=== PATIENT | male | born 1990 | race Caucasian/White ===

== ENCOUNTER 2021-09-09 15:49 | Emergency (ER) | payer OTHER, SELFPAY ==
[2021-09-09 16:45] VITALS: BP 146/103; PULSE 59; RESP 18; TEMP 36.5; O2SAT 96; BMI 42.0
--- NOTE | 2021-09-09 18:02 | USR_ITS ---
PROCEDURE INFORMATION: Exam: US Duplex Left Lower Extremity Veins, Limited Exam date and time: 09/09/2021 8:13 PM Age: 31 years old Clinical indication: Pain; Swelling (edema) of limb; Lower extremity, left; Leg, upper and leg, lower; Additional info: Leg pain TECHNIQUE: Imaging protocol: Real-time Duplex ultrasound of the Left Lower Extremity with 2-D latif scale, color Doppler flow and spectral waveform analysis with image documentation. Limited exam focused on the left lower extremity veins. COMPARISON: No relevant prior studies available. FINDINGS: Left deep veins: Unremarkable. The common femoral, femoral, proximal profunda femoral and popliteal veins are patent without thrombus. Normal Doppler waveforms. Normal compressibility and/or augmentation response. Left superficial veins: Unremarkable. Saphenofemoral junction is patent without thrombus. Soft tissues: Unremarkable. US/CV venous duplex [facility] [id number] IMPRESSION: No evidence of deep vein thrombosis.
--- NOTE | 2021-09-09 20:06 | ED_ITS ---
HPI - Extremity Problem General: Chief complaint: Extremity Injury, Lower Stated complaint: poss bloodclot Time Seen by Provider: 09/09/21 20:06 History of Present Illness: 31-year-old male patient comes in today with complaints of swelling and discomfort to the left lower extremity. Patient does have a history of intervertebral disc disease affecting his low back and bilateral lower extremities. Patient was referred to the ER from his primary care office for concerns of possible blood clot. Patient appears nontoxic. Patient appears no acute distress. MD Complaint: extremity swelling Onset (ago): day(s) Associated symptoms: Deny chest pain or fever(s) Review of Systems General: Reports: 10 or more systems reviewed and unremarkable except in HPI and below Const: Denies: fever(s) Card: Denies: chest pain Resp: Denies: dyspnea Musc: Reports: extremity swelling (Left lower leg) Physical Exam Const: COMMON NORMALS: alert Neck/C-Spine: COMMON NORMALS: full ROM Resp: COMMON NORMALS: normal respiratory effort Extremity: LEFT LOWER EXTREMITY: Yes lower leg (No significant swelling or redness) Left lower leg: Yes inspection, Yes palpation and Yes neurovascular exam Neuro: SENSORIUM/ORIENTATION: Yes alert Course Vital Signs: Vital signs: Vital Signs Temperature 97.7 F 09/09/21 16:45 Pulse Rate 59 L 09/09/21 16:45 Respiratory Rate 18 09/09/21 16:45 Blood Pressure 146/103 09/09/21 16:45 Pulse Oximetry 96 09/09/21 16:45 MDM - Extremity (Nontraumatic) Medical Decision Making Patient comes in today with complaints of left lower extremity pain and swelling. On exam there is no significant redness or swelling to the left lower extremity. Pulses are intact. Patient does report pain to palpation. Differential diagnosis includes but not limited to neuropathy, PVD, DVT. Review of the ultrasound indicated no sign of DVT. Reviewed exam with patient with recommendations for follow-up or return to the ER. Patient reported understanding. Discharge Plan Discharge Patient Disposition: Home Clinical Impression: Mild peripheral edema Condition: Stable Discharge Orders: Discharge ED (Routine); Ordered 09/09/21 Ordered By: Robert Jaime Discharge Diet: Usual diet Discharge Activity: Increase activity as tolerated Patient Instructions: Leg Edema (ED) Activity Restrictions/Additional Instructions: Try to elevate leg is much as possible. Monitor for increasing redness and pain. Follow-up with primary care for further instruction. Return to ER for new concerns. If the final results from your ultrasound are different than what we explained we will contact you. Coding Level of Care Code ED Seed Cleaning Machine Operator for Emily Fwd Exam Expanded Problem Focused
[2021-09-09 21:39] VITALS: BP 154/92; PULSE 95; RESP 18; TEMP 36.8; O2SAT 95
== END 2021-09-09 21:40 | disposition home or self-care (01) ==
PROVIDERS: Emergency Provider Nurse Practitioner Family
DX: R60.0 Localized edema (principal)
CPT/HCPCS: 93971; 99282

== ENCOUNTER → 2021-09-18 08:26 | Outpatient (BNVA) | payer OTHER, SELFPAY | PROVIDERS: PCP Family Medicine; Visit Provider Internal Medicine Critical Care Medicine | DX: D86.9 Sarcoidosis, unspecified (principal); G47.33 Obstructive sleep apnea (adult) (pediatric); M54.9 Dorsalgia, unspecified; G89.29 Other chronic pain; F17.210 Nicotine dependence, cigarettes, uncomplicated | CPT/HCPCS: 36415; 71046; 80053; 82164; 82306; 82652; 85025; 99204 ==

== ENCOUNTER → 2021-09-21 12:30 | Outpatient (BNVA) | payer OTHER, SELFPAY | PROVIDERS: PCP Family Medicine; Visit Provider Internal Medicine Critical Care Medicine | DX: D86.9 Sarcoidosis, unspecified (principal); G47.33 Obstructive sleep apnea (adult) (pediatric); M54.9 Dorsalgia, unspecified; G89.29 Other chronic pain; F17.210 Nicotine dependence, cigarettes, uncomplicated | CPT/HCPCS: 82340 ==

== ENCOUNTER → 2021-09-25 14:53 | Outpatient (BNVA) | payer OTHER, SELFPAY | PROVIDERS: PCP Family Medicine; Referring Provider Family Medicine; Visit Provider Surgery | DX: Z86.010 Personal history of colon polyps (principal); F17.210 Nicotine dependence, cigarettes, uncomplicated | CPT/HCPCS: 99203 ==

== ENCOUNTER 2021-10-16 07:27 | Outpatient (RCR) | payer OTHER, SELFPAY | END 2021-11-12 23:59 | disposition home or self-care (01) | LOC: SPT 07:27 | PROVIDERS: PCP Family Medicine; Referring Provider Family Medicine; Visit Provider Family Medicine | DX: M54.50 Low back pain, unspecified (principal) | CPT/HCPCS: 97032; 97110; 97161 ==

== ENCOUNTER 2021-11-13 06:00 | Outpatient (RCR) | payer OTHER, SELFPAY | END 2021-12-12 23:59 | disposition home or self-care (01) | LOC: SPT 06:00 | PROVIDERS: PCP Family Medicine; Referring Provider Family Medicine; Visit Provider Family Medicine | DX: M54.50 Low back pain, unspecified (principal) | CPT/HCPCS: 97032; 97110 ==

== ENCOUNTER → 2021-11-25 13:50 | Outpatient (BNVA) | payer OTHER, SELFPAY | PROVIDERS: PCP Family Medicine; Referring Provider Family Medicine; Visit Provider Specialist | DX: S43.102S Unspecified dislocation of left acromioclavicular joint, sequela (principal); X58.XXXS Exposure to other specified factors, sequela; S46.912S Strain of unspecified muscle, fascia and tendon at shoulder and upper arm level, left arm, sequela; M25.512 Pain in left shoulder | CPT/HCPCS: 73030; 99204 ==

== ENCOUNTER → 2021-12-18 07:54 | Outpatient (BNVA) | payer OTHER, SELFPAY | PROVIDERS: PCP Family Medicine; Referring Provider Specialist; Visit Provider Specialist | DX: R20.0 Anesthesia of skin (principal); R20.2 Paresthesia of skin | CPT/HCPCS: 95908; 95909 ==

== ENCOUNTER 2022-01-23 08:42 | Outpatient (CLI) | payer OTHER, SELFPAY ==
--- NOTE | 2022-01-23 08:45 | MR_ITS ---
WS: [id number] MRI LEFT SHOULDER NONCONTRAST TECHNIQUE: Sagittal T2, coronal T1, T2 and proton density imaging. Axial gradient PDE imaging. CLINICAL INFORMATION: pain COMPARISON: None. FINDINGS: Prior postoperative changes AC joint with resection of the distal clavicle. Tiny amount of edema/flui d. Subacromial space is preserved. Normal supraspinatus. Normal infraspinatus. Normal teres minor. Lara bscapularis is normal. No acute appearing rotator cuff tears. Normal biceps tendon in the bicipital groove. Normal biceps labral anchor. Glenoid labrum appears tomasz ssly normal. Normal bone marrow signal in the humerus and glenoid. Normal intra-articular biceps tend on. MR/MR shoulder LT wo con* [id number] IMPRESSION: 1. Prior postoperative changes AC joint with resection distal clavicle. Tiny a mount of edema at the distal clavicle. 2. Preservation of the subacromial space. Normal rotator cuff. No acute rotato r cuff tears. 3. Normal biceps tendon in the bicipital groove. Normal biceps labral anchor. 4. No other suspicious findings.
== END 2022-01-23 08:43 | disposition home or self-care (01) ==
PROVIDERS: PCP Family Medicine; Visit Provider Specialist
DX: M25.512 Pain in left shoulder (principal); R60.0 Localized edema
CPT/HCPCS: 73221

== ENCOUNTER 2022-02-21 12:38 | Emergency (ER) | payer OTHER, SELFPAY ==
[2022-02-21 12:40] VITALS: BP 141/100; PULSE 64; RESP 16; TEMP 36.7; O2SAT 97; BMI 39.5
--- NOTE | 2022-02-21 13:15 | W.ED.BACK ---
HPI - Back Pain/Injury General: Chief Complaint: Back Pain/Injury Stated Complaint: lower back pain Time Seen by Provider: 02/21/22 12:57 Source: patient Mode of arrival: ambulatory Limitations: no limitations History of Present Illness: 31-year-old male with a history of chronic back pain presents to the ER today for worsening low back pain x4 days. Patient reports he was working in his garage on Thursday and noticed that evening he had some increased pain. He denies doing any heavy lifting however does admit to lifting some and twisting some. Patient reports throughout the week the pain has continued to worsen. Patient reports he lives with pain every day and takes hydrocodone, tizanidine, gabapentin, and duloxetine. Patient reports this pain seems slightly different and worse. He reports he still has radiating pain down his legs however that burning/radiating pain is normal for him. He denies any loss of bowel or bladder control. Denies any new neurological deficits. Patient reports he sees a pain management doctor at [place]. Review of Systems General: Reports: 10 or more systems reviewed and unremarkable except in HPI and below PFSH ED PFSH: Medical History Chronic back pain Chronic fatigue Depression Obstructive sleep apnea Sarcoidosis Separation of left acromioclavicular joint, type 5 Social History Smoking and tobacco status: current every day smoker (5 cigs/ day, smokes 1 gram marijuana/ day) Alcohol intake: never History of recent travel: No Physical Exam Const: COMMON NORMALS: patient oriented x3, no limitations, healthy appearing, alert and well nourished Neck/C-Spine: COMMON NORMALS: full ROM and no lymphadenopathy Resp: COMMON NORMALS: normal respiratory effort EFFORT & INSPECTION: Yes able to speak in complete sentences Cardio: COMMON NORMALS: regular rate and regular rhythm RATE: regular rate RHYTHM: regular rhythm GI: OTHER: obese Back/Pelvis: COMMON NORMALS: thoracic and lumbar spine normal to inspection and no thoracic nor lumbar tenderness (Right paraspinal muscle tenderness); negative for thoraco-lumbar ROM normal (Decreased range of motion secondary to pain.) Extremity: COMMON NORMALS: normal to inspection and full ROM Neuro: COMMON NORMALS: patient oriented x3 SENSORIUM/ORIENTATION: Yes alert Psych: COMMON NORMALS: mental status grossly normal, Normal thought process present and cooperative THOUGHT PROCESS: Normal thought process present Skin: COMMON NORMALS: no rashes or lesions noted and no wounds GENERAL SKIN EXAM: no rashes or lesions noted Course ED course: 31-year-old male presents to the ER today for an acute exacerbation of chronic low back pain. Patient reports a longstanding history of low back problems. Patient reports has had multiple surgeries before. Patient reports on Thursday he was cleaning his garage out and by that evening he noticed some increased back pain. Patient denies any heavy lifting but does admit to lifting 10 to 15 pounds and doing some twisting. Patient reports throughout the week the pain has continued to worsen. He reports it feels like a slightly different pain than normal. He denies any neurological deficits. Denies any loss of bowel or bladder control. Patient reports he still has the pain radiating down his leg however that is not a new thing for him. Patient reports he is taking all his medications at home with minimal relief. He has not been able to sleep the last couple of days. Given patient has no neurological deficits at this time and this is not a new pain, I do not feel imaging is necessary at this time. Vital Signs: Vital signs: Vital Signs Temperature 98.1 F 02/21/22 12:40 Pulse Rate 64 02/21/22 12:40 Respiratory Rate 16 02/21/22 12:40 Blood Pressure 141/100 02/21/22 12:40 Pulse Oximetry 97 02/21/22 12:40 Oxygen Delivery Me thod 02/21/22 12:40 MDM - Back Pain/Injury Medical Decision Making 31-year-old male presents to the ER today for an acute exacerbation of chronic low back pain. Patient reports a longstanding history of low back problems. Patient reports has had multiple surgeries before. Patient reports on Thursday he was cleaning his garage out and by that evening he noticed some increased back pain. Patient denies any heavy lifting but does admit to lifting 10 to 15 pounds and doing some twisting. Patient reports throughout the week the pain has continued to worsen. He reports it feels like a slightly different pain than normal. He denies any neurological deficits. Denies any loss of bowel or bladder control. Patient reports he still has the pain radiating down his leg however that is not a new thing for him. Patient reports he is taking all his medications at home with minimal relief. He has not been able to sleep the last couple of days. Given patient has no neurological deficits at this time and this is not a new pain, I do not feel imaging is necessary at this time. Patient is likely having a flareup of chronic low back pain due to some inflammation. Recommended patient increase his meloxicam from 7.5 to 15 mg daily. We will do a Medrol Dosepak to help with inflammation. Patient should continue all other home medications as previously prescribed. Contact pain management doctor today or Thursday for follow-up. Return to the ER with any new or worsening symptoms. Patient verbalized understanding and was in agreement with the treatment plan. Critical Care Time Critical Care Time: Critical Care Time: No Discharge Plan Discharge Patient Disposition: Home Clinical Impression: Acute exacerbation of chronic low back pain Condition: Stable Prescriptions: New Medrol (Artem) 4 mg tablets,dose pack See Rx Instructions PO .COMPLEX Qty: 21 0RF Rx Instructions: orally per package directions No Action buspirone 30 mg tablet 20 mg PO BID cetirizine [Allergy Relief (cetirizine)] 10 mg tablet 10 mg PO DAILY PRN cholecalciferol (vitamin D3) 50 mcg (2,000 unit) capsule 50 mcg PO DAILY duloxetine 30 mg capsule,delayed release(DR/EC) 30 mg PO TID fluticasone propionate [Allergy Relief (fluticasone)] 50 mcg/actuation spray,suspension 2 spray intranasal DAILY Rx Instructions: administer into each nostril gabapentin 600 mg tablet 600 mg PO TID naloxone 4 mg/actuation spray,non-aerosol 4 mg intranasal ONCE PRN Rx Instructions: spray 1 dose into ONE nostril; alternate nostrils w each dose until help arrives tizanidine 4 mg capsule 4 mg PO TID PRN meloxicam 7.5 mg tablet 7.5 mg PO DAILY hydrocodone-acetaminophen 7.5-325 mg tablet 1 tab PO Q6H PRN Label Comments: Decreased to 5mg/325mg multivitamin Tablet 1 tab PO DAILY Discharge Orders: Discharge ED (Routine); Ordered 02/21/22 Ordered By: Anastacia Bowser Referrals: Zoya Daly MD [Primary Care Provider] - Discharge Diet: Usual diet Discharge Activity: Increase activity as tolerated Patient Instructions: Opioid Safety Activity Restrictions/Additional Instructions: Take Medrol Dosepak as prescribed. Increase meloxicam from 7.5 to 15 mg daily. Warm heat alternating with ice. Contact PCP/pain management doctor today or Thursday for follow-up next week. Return to the ER with any new or worsening symptoms. Coding Level of Care Code ED Developer [employer] for Emily Monsalve
== END 2022-02-21 13:58 | disposition home or self-care (01) ==
PROVIDERS: Emergency Provider Physician Assistant; PCP Family Medicine
DX: G89.29 Other chronic pain (principal); M54.50 Low back pain, unspecified; F17.210 Nicotine dependence, cigarettes, uncomplicated
CPT/HCPCS: 99283

== ENCOUNTER 2022-02-27 06:29 | Day surgery (SDC) | payer OTHER, SELFPAY ==
[2022-02-25 09:34] VITALS: BMI 39.8
[2022-02-27 06:46] VITALS: BP 140/86; PULSE 64; RESP 16; TEMP 36.4; O2SAT 96
[2022-02-27] MEDS: sodium chloride 0.9% 1,000 ML 30 ML IV (06:53)
--- NOTE | 2022-02-27 07:19 | P.HP_ITS ---
Same Day Surgery H&P Indication for Procedure/HPI DATE OF PROCEDURE: February 27, 2022 CHIEF COMPLAINT/INDICATIONFOR SURGICAL PROCEDURE: History of colon polyps PREOP DIAGNOSIS: History of colon polyps PLANNED PROCEDURE: Operation Date: 02/27/22 08:00 Proposed Procedures p Colonoscopy 69840/z86.010(Not Applicable) - Samuel Kathleen MD 09/25/2021 This is a pleasant 31 years old gentleman reports that he had history of colon polyps removed 5 years ago as he did have bleeding per rectum.? He denies history of colon cancer except for his grand father whom he had colon cancer and he reports that his mom had history of colon polyps being precancerous.? Patient comes today to discuss surveillance colonoscopy. 02/27/2022 Patient comes today for surveillance colonoscopy ROS All systems have been reviewed negative except as for the above or per problem list. Medications/Allergies* Home Medications Medication Instructions Recorded Confirmed Type buspirone 30 mg tablet 30 mg PO BID 09/18/21 02/27/22 History cetirizine 10 mg tablet (Allergy 10 mg PO DAILY PRN Allergy Symptoms 09/18/21 02/27/22 History Relief (cetirizine)) duloxetine 30 mg capsule,delayed 30 mg PO TID 09/18/21 02/27/22 History release fluticasone propionate 50 2 spray intranasal DAILY PRN 09/18/21 02/27/22 History mcg/actuation nasal Allergy Symptoms spray,suspension (Allergy Relief (fluticasone)) gabapentin 600 mg tablet 600 mg PO TID 09/18/21 02/27/22 History meloxicam 7.5 mg tablet 7.5 mg PO DAILY 09/18/21 02/27/22 History naloxone 4 mg/actuation nasal spray 4 mg intranasal ONCE PRN Opioid 09/18/21 02/27/22 History Overdose tizanidine 4 mg capsule 4 mg PO TID PRN Muscle Spasm 09/18/21 02/27/22 History multivitamin 1 tab PO DAILY 12/18/21 02/27/22 History hydrocodone 10 mg-acetaminophen 1 tab PO Q6H PRN Pain 02/25/22 02/27/22 History 325 mg tablet Allergies/Adverse Reactions Allergy/AdvReac Type Severity Reaction Status Date / Time latex Allergy Severe ALGY-Rash Verified 02/27/22 07:19 Current Medications: Generic Name Dose Route Start Last Admin Trade Name Francisco PRN Reason Stop Dose Admin Sodium Chloride 1,000 mls @ 30 mls/hr 02/27/22 06:45 02/27/22 06:53 Sodium Chloride 0.9% IV 30 mls/hr .Q24H KEN Administration Pertinent History/Comorbid Conditions* Medical History (Updated 02/21/22 @ 13:35 by Anastacia Bowser PA-C) Chronic back pain Chronic fatigue Depression Obstructive sleep apnea Sarcoidosis Separation of left acromioclavicular joint, type 5 Social History Smoking and tobacco status: current every day smoker (5 cigs/ day, smokes 1 gram marijuana/ day) Alcohol intake: never History of recent travel: No Pertinent Exam Findings alert, oriented x 3, regular rate & rhythm and procedure specific exam findings (Abdominal examination nontender nondistended soft) Recommendations Surgery/Procedure today (Colonoscopy with possible biopsy) Coding Level of Care Code Acute Analytical Research Chemist for Emily Monsalve
--- NOTE | 2022-02-27 07:27 | P.ANESASSM_ITS ---
Pre-Anesthetic Assessment Height/Weight: Height 1.88 m Weight 140.614 kg Temp Pulse Resp BP Pulse Ox O2 Del Method 97.6 F 64 16 140/86 96 02/27/22 06:46 02/27/22 06:46 02/27/22 06:46 02/27/22 06:46 02/27/22 06:46 02/27/22 06:46 Preop Diagnosis: History of colon polyps Operation Date: 02/27/22 08:00 Proposed Procedures p Colonoscopy 41313/z86.010(Not Applicable) - Samuel Kathleen MD Last intake: Intake Last Liquid Date 02/26/22 Last Liquid Time 00:00 Last Solid Date 02/25/22 Last Solid Time 22:00 Social Alcohol and Tobacco last cig last night. 5-10 cigs a day pack(s) per day Exam alert, oriented x 3, clear to auscultation bilaterally and regular rate & rhythm Airway Submandibular: within normal limits Cervical ROM: within normal limits Mallampati: Class II History/ROS No significant history except as noted Pulmonary Sleep Apnea sarcoidosis with lung mass CV/HEM None reported None reported Hepatic None reported GI Gastroesophageal Reflux Disease Metabolic Morbid Ob[place] [facility] Lower Back Pain Neuropsych Anxiety and Depression Anesthetic Plan ASA status: 3 Anesthesia: Anesthesia Evaluation and MAC Risk of > 500 ml blood loss (7ml/kg in children): Yes, adequate IV access and fluids planned Medications/Allergies Home Medications Medication Instructions Recorded Confirmed Last Taken Type buspirone 30 mg tablet 30 mg PO BID 09/18/21 02/27/22 02/26/22 History cetirizine 10 mg tablet (Allergy 10 mg PO DAILY PRN Allergy Symptoms 09/18/21 02/27/22 02/25/22 History Relief (cetirizine)) duloxetine 30 mg capsule,delayed 30 mg PO TID 09/18/21 02/27/22 02/26/22 History release fluticasone propionate 50 2 spray intranasal DAILY PRN 09/18/21 02/27/22 Unknown History mcg/actuation nasal Allergy Symptoms spray,suspension (Allergy Relief (fluticasone)) gabapentin 600 mg tablet 600 mg PO TID 09/18/21 02/27/22 02/26/22 History meloxicam 7.5 mg tablet 7.5 mg PO DAILY 09/18/21 02/27/22 02/26/22 History naloxone 4 mg/actuation nasal spray 4 mg intranasal ONCE PRN Opioid 09/18/21 02/27/22 Unknown History Overdose tizanidine 4 mg capsule 4 mg PO TID PRN Muscle Spasm 09/18/21 02/27/22 02/26/22 History multivitamin 1 tab PO DAILY 12/18/21 02/27/22 02/25/22 History methylprednisolone 4 mg tablets in See Rx Instructions PO .COMPLEX 02/21/22 02/27/22 02/26/22 Rx a dose pack (Medrol (Artem)) #21 ea hydrocodone 10 mg-acetaminophen 1 tab PO Q6H PRN Pain 02/25/22 02/27/22 02/27/22 History 325 mg tablet peg 3350-electrolytes 236 240 ml PO Q10M #4,000 mL 02/25/22 02/26/22 Rx gram-22.74 gram-6.74 gram-5.86 gram solution (Golytely) Allergies Allergy/AdvReac Type Severity Reaction Status Date / Time latex Allergy Severe ALGY-Rash Verified 02/27/22 07:19 Current Medications Generic Name Dose Route Start Last Admin Trade Name Freq PRN Reason Stop Dose Admin Sodium Chloride 1,000 mls @ 30 mls/hr 02/27/22 06:45 02/27/22 06:53 Sodium Chloride 0.9% IV 30 mls/hr .Q24H KEN Administration PFSH Anesthesia Medical History Chronic back pain Chronic fatigue Depression Obstructive sleep apnea Sarcoidosis Separation of left acromioclavicular joint, type 5 Social History Smoking and tobacco status: current every day smoker (5 cigs/ day, smokes 1 gram marijuana/ day) Alcohol intake: never History of recent travel: No Data Anesthesia Cardiac Studies: No Data to Display
[2022-02-27 08:24] VITALS: BP 128/66; PULSE 51; RESP 18; TEMP 36.1; O2SAT 95
[2022-02-27 08:40] VITALS: BP 124/67; PULSE 50; RESP 18; O2SAT 99
--- NOTE | 2022-02-27 15:14 | ANE.PACU2 ---
Inpatient post-anesthesia follow up: Airway intact: Yes Vital signs: Temperature 97 F Pulse Rate 50 Respiratory Rate 18 Blood Pressure 124/67 Pulse Oximetry 99 Oxygen Delivery Me thod Room Air Oxygen Flow Rate Fraction of Inspir ed Oxygen Hydration adequate: Yes Nausea and vomiting: No Pain level: 1 Mental status: Baseline
== END 2022-02-27 08:54 | disposition home or self-care (01) ==
PROVIDERS: PCP Family Medicine; Visit Provider Surgery
PROC: 0DJD8ZZ Inspection of Lower Intestinal Tract, Via Natural or Artificial Opening Endoscopic (ICD-10-PCS; CPT 45378; principal; 2022-02-27 08:00)
DX: Z12.11 Encounter for screening for malignant neoplasm of colon (principal); Z86.010 Personal history of colon polyps; G47.33 Obstructive sleep apnea (adult) (pediatric); F17.210 Nicotine dependence, cigarettes, uncomplicated; G47.30 Sleep apnea, unspecified; K21.9 Gastro-esophageal reflux disease without esophagitis; E66.01 Morbid (severe) obesity due to excess calories; Z68.39 Body mass index [BMI] 39.0-39.9, adult
CPT/HCPCS: 45378; J2704; J3490; J7030

== ENCOUNTER → 2022-03-12 15:54 | Outpatient (BNVA) | payer OTHER, SELFPAY | PROVIDERS: PCP Family Medicine; Visit Provider Surgery | DX: Z09 Encounter for follow-up examination after completed treatment for conditions other than malignant neoplasm (principal); Q43.8 Other specified congenital malformations of intestine | CPT/HCPCS: 99212 ==

== ENCOUNTER → 2022-03-20 08:41 | Outpatient (BNVA) | payer OTHER, SELFPAY | PROVIDERS: PCP Family Medicine; Referring Provider Specialist; Visit Provider Specialist | DX: R20.0 Anesthesia of skin (principal); R20.2 Paresthesia of skin | CPT/HCPCS: 95860; 99202 ==

== ENCOUNTER 2022-09-11 13:23 | Outpatient (CLI) | payer OTHER, SELFPAY ==
--- NOTE | 2022-09-11 14:04 | XR_ITS ---
WS: [id number] Exam: XR lumbar spine 2-3V* [id number] Date/Time of Exam: 09/11/2022 2:07 PM Reason For Exam: LUMBAR RADICULOPATHY;LUMBAR SPONDYLOSIS There is posterior interbody fusion of the spine at L5-S1 with pedicle screws and posterior rods. Dec ompression laminectomy noted at this level. A disc implant is noted at this level. The remainder of t he lumbar spine is unremarkable. Remaining posterior elements and disks are well preserved. XR/XR lumbar spine 2-3V* [id number] IMPRESSION: 1. Stable-appearing posterior fusion with laminectomy at L5-S1. No complication s are noted. 2. The remainder of the lumbar spine appears normal
== END 2022-09-11 13:24 | disposition home or self-care (01) ==
PROVIDERS: PCP Family Medicine; Visit Provider Nurse Practitioner Family
DX: M54.16 Radiculopathy, lumbar region (principal); M47.818 Spondylosis without myelopathy or radiculopathy, sacral and sacrococcygeal region; M51.26 Other intervertebral disc displacement, lumbar region; Z98.1 Arthrodesis status
CPT/HCPCS: 72100

== ENCOUNTER 2023-03-11 13:24 | Outpatient (CLI) | payer OTHER, SELFPAY ==
--- NOTE | 2023-03-11 13:34 | XR_ITS ---
WS: [id number] Lumbar spine, 3 views, 03/11/2023 Clinical Data: LUMBAR RADICULOPATHY. NUMBNESS IN LEFT LEG Comparison: Lumbar spine, 09/11/2022 Findings: There is a posterior lumbosacral fusion at L5-S1 with bilateral pedicle screws and connecting rods. T here is an artificial disc at L5-S1. There is a laminectomy at L5. No compression fractures are seen. The disc heights are normal. The transverse processes and SI joint s are unremarkable. Impression: Stable posterior lumbosacral fusion.
== END 2023-03-11 13:25 | disposition home or self-care (01) ==
PROVIDERS: PCP Family Medicine; Visit Provider Surgery
DX: M54.16 Radiculopathy, lumbar region (principal); Z98.1 Arthrodesis status
CPT/HCPCS: 72100

== ENCOUNTER → 2023-05-11 11:11 | Outpatient (BNVA) | payer OTHER, SELFPAY | PROVIDERS: PCP Family Medicine; Referring Provider Family Medicine; Visit Provider Surgery | DX: L05.91 Pilonidal cyst without abscess (principal) | CPT/HCPCS: 99203; 99213 ==

== ENCOUNTER 2023-05-27 07:05 | Day surgery (SDC) | payer OTHER, SELFPAY ==
[2023-05-27] VITALS (12 sets, daily range): BP systolic 105–138; BP diastolic 25–102; PULSE 50–89; RESP 7–22; TEMP 35.6–36.6; O2SAT 97–100; BMI 36.6
[2023-05-27] MEDS: sodium chloride 0.9% 1,000 ML 30 ML IV (07:23)
--- NOTE | 2023-05-27 07:33 | ANES.PREANE2 ---
Pre-Anesthetic Assessment Height/Weight: Height 1.88 m Weight 129.274 kg Temp Pulse Resp BP Pulse Ox O2 Del Method 96.0 F L 70 18 128/74 97 Room Air 05/27/23 07:15 05/27/23 07:15 05/27/23 07:15 05/27/23 07:15 05/27/23 07:15 05/27/23 07:16 Operation Date: 05/27/23 08:45 Proposed Procedures p [id number] pilonidal cyst L05.91(Not Applicable) - Michael Schmidt MD Familial anesthetic complications: None Was Beta Kyler taken within 24 hours: N/A Was Clonidine taken within 24 hours: N/A Last intake: Intake Last Liquid Date 05/26/23 Last Liquid Time 23:30 Last Solid Date 05/26/23 Last Solid Time 23:30 Social Tobacco and No alcohol Exam alert, oriented x 3, clear to auscultation bilaterally and regular rate & rhythm Airway Mallampati: Class IV Dentition: full Comments: Comments: full martinez Pulmonary Sleep Apnea Metabolic Morbid Obesity Musc/skel sarcoidosis, asymptomatic ( I have it everywhere, but it doesn't really affect me ) Anesthetic Plan ASA status: 3 Anesthesia: General Risk of > 500 ml blood loss (7ml/kg in children): No Medications/Allergies Home Medications Medication Instructions Recorded Confirmed Last Taken Type buspirone 30 mg tablet 15 mg PO BID 09/18/21 05/26/23 05/26/23 History cetirizine 10 mg tablet (Allergy 10 mg PO DAILY PRN Allergy Symptoms 09/18/21 05/26/23 05/26/23 History Relief (cetirizine)) naloxone 4 mg/actuation nasal spray 4 mg intranasal ONCE PRN Opioid 09/18/21 05/26/23 Unknown History Overdose tizanidine 4 mg capsule 4 mg PO TID PRN Muscle Spasm 09/18/21 05/26/23 02/26/22 History hydrocodone 7.5 mg-acetaminophen 1 tab PO QID PRN Pain 05/11/23 05/26/23 05/26/23 History 325 mg tablet Allergies Allergy/AdvReac Type Severity Reaction Status Date / Time latex Allergy Severe ALGY-Rash Verified 05/11/23 11:16 Current Medications Generic Name Dose Route Start Last Admin Trade Name Freq PRN Reason Stop Dose Admin Sodium Chloride 1,000 mls @ 30 mls/hr 05/27/23 07:15 12 07:23 Sodium Chloride 0.9% IV 05/28/23 07:14 30 mls/hr .Q24H KEN Administration PFSH Anesthesia Medical History (Updated 05/11/23 @ 17:56 by Michael Schmidt MD) Separation of left acromioclavicular joint, type 5 Chronic fatigue Chronic back pain Obstructive sleep apnea Depression Sarcoidosis Family History (Updated 05/11/23 @ 11:23 by MIKEY Quinn) Father Lung cancer Diabetes Heart failure Mother Depression Anxiety Colon cancer Social History Smoking and tobacco/nicotine status: never used tobacco/nicotine Alcohol intake: never Substance/Drug Use: never Data Anesthesia Cardiac Studies: No Data to Display
--- NOTE | 2023-05-27 08:28 | P.HPUD_ITS ---
Surgery/Procedure H&P Update DATE OF PROCEDURE: May 27, 2023 DATE H&P PERFORMED: 05/11/23 H&P UPDATE INFORMATION: I have reviewed H&P completed within last 30 days, I have examined patient prior to procedure, No changes to prior documentation and H&P is in [facility] [place] on date indicated PLANNED PROCEDURE: Operation Date: 05/27/23 08:45 Proposed Procedures p [id number] pilonidal cyst L05.91(Not Applicable) - Michael Schmidt MD
--- NOTE | 2023-05-27 08:28 | W.PM.OPSUD ---
Surgery/Procedure H&P Update DATE OF PROCEDURE: May 27, 2023 DATE H&P PERFORMED: 05/11/23 H&P UPDATE INFORMATION: I have reviewed H&P completed within last 30 days, I have examined patient prior to procedure, No changes to prior documentation and H&P is in [facility] [place] EMR on date indicated PLANNED PROCEDURE: Operation Date: 05/27/23 08:45 Proposed Procedures p [id number] pilonidal cyst L05.91(Not Applicable) - Michael Schmidt MD
[2023-05-27] MEDS: ceFAZolin 2,000 MG in sodium chloride 0.9% (plus) 50 ML 100 MG IV (08:30)
[2023-05-27] MEDS: lidocaine-epi 1% 20 mL INJ INJECTION (09:14)
[2023-05-27] MEDS: BUPivacaine 0.25% INJ 10 mL INJECTION (09:14)
--- NOTE | 2023-05-27 10:00 | PM.OP ---
Operative Report Date of procedure: May 27, 2023 Pre-op diagnosis: Pilonidal cyst Post-op diagnosis: Same Post-op findings: On the superior aspect of his previous surgical incision there was a pilonidal sinus tracking down to the subcutaneous tissue with probably 2 distinct sinus tracts, all affected tissue was excised. Procedure done: Excision of pilonidal cyst and sinus Specimens removed/disposition: Pilonidal cyst and sinus Surgeon: Michael Schmidt MD Rubber Molder: [facility] OR Staff Estimated blood loss: 5 Complications: none Brief History: Is a 32-year-old male who presented to my clinic complaining of recurrent pilonidal sinus infections requiring I&D he had history of previous lumbar fusion and sinus appeared to be located on the top of the previous incision. After discussion of all risk and benefits patient was consented for pilonidal cyst excision Procedure: Patient was brought into the OR. He was intubated. He was placed in the prone jackknife position. The lower back was prepped and draped in the usual sterile fashion. Timeout was conducted. I then examined the whole upper portion of the wu cleft, no evidence of significant pilonidal sinuses were noted near the tailbone, on the superior aspect of his previous surgical incision there was sinus with sinus appeared to track down to subcutaneous tissue and from pain care. I then make 2.5 cm elliptical incision close in the sinus, the incision was deepened to subcutaneous tissue and an close the pilonidal sinus tract, the sinus and tract were completely excised from the subcutaneous tissue up to the level of the prespinal fascia. Careful consideration was made on not exposing any previous orthopedic material. Once the affected tissue was removed a curette was used to ensure that no remaining cyst tissue was on the bed of the wound. Hemostasis was obtained and then the wound was irrigated with copious amount of saline. I then proceeded to create flaps on the superior inferior medial and lateral direction on the subcutaneous tissue to allow for closure without tension. I then proceeded to closed the wound in layers using 2-0 Vicryl for the deepest layer 3-0 Vicryl for the subcutaneous layer and 3-0 nylon for the skin in a vertical mattress fashion. Steri-Strips were then applied and the compression dressing was placed on top. At the end of the procedure all counts were correct, the patient tolerated well the procedure was returned to supine position extubated, he was transferred to the PACU in stable condition.
[2023-05-27] MEDS: fentaNYL 50 mcg/mL INJ 2mL IVP (10:34)
--- NOTE | 2023-05-27 11:30 | ANE.PACU2 ---
Inpatient post-anesthesia follow up: Airway intact: Yes Vital signs: Temperature 97.6 F Pulse Rate 65 Respiratory Rate 16 Blood Pressure 123/25 Pulse Oximetry 98 Oxygen Delivery Me thod Room Air Oxygen Flow Rate 6 Fraction of Inspir ed Oxygen Hydration adequate: Yes Nausea and vomiting: No Pain level: 1 Mental status: Baseline
== END 2023-05-27 11:30 | disposition home or self-care (01) ==
PROVIDERS: PCP Family Medicine; Visit Provider Surgery
PROC: (CPT 11771; principal; 2023-05-27 08:35)
DX: L05.91 Pilonidal cyst without abscess (principal); E66.01 Morbid (severe) obesity due to excess calories; Z68.36 Body mass index [BMI] 36.0-36.9, adult; G47.33 Obstructive sleep apnea (adult) (pediatric)
CPT/HCPCS: 11771; 88304; J0690; J1100; J2250; J2405; J2704; J2710; J3010; J3490; J7030

== ENCOUNTER → 2023-06-18 13:14 | Outpatient (BNVA) | payer OTHER, SELFPAY | PROVIDERS: PCP Family Medicine; Visit Provider Surgery | DX: L05.91 Pilonidal cyst without abscess (principal); Z98.890 Other specified postprocedural states | CPT/HCPCS: 99024 ==